=== PATIENT | female | born 1950 | race Asian ===

== ENCOUNTER 2018-06-26 05:59 | Emergency (ER) | payer MEDICARE, OTHER ==
[~2018-06-26] VITALS: Ht 152.4 cm; Wt 63.5 kg
[2018-06-26 06:15] VITALS: BP 139/76
--- NOTE | 2018-06-26 06:15 | NUR ---
ED Nurse Note: Patient was brought in by RA from home due to severe abdominal pain 12/27, N/V/D. Patient is visiting family members from [place]. Per patient she had soup yesterday, and after that severe abdominal pain started. AAO x4, VSS at this time, skin is dry, intact, warm to touch.
[2018-06-26] MEDS ORDERED: Morphine Sulfate 4mg/ml Inj (IV USE ONLY) IVP ONE ×2 (06:30→08:15)
[2018-06-26 06:43] LABS: BASOPHILS % (AUTO) 0.5 % (0.0-2.0); EOSINOPHILS % (AUTO) 1.1 % (0.0-3.0); HEMATOCRIT 41.3 % (37.0-47.0); HEMOGLOBIN 13.8 G/DL (12.0-16.0); LYMPHOCYTES % (AUTO) 10.6 % (20.0-45.0); MEAN CORPUSCULAR VOLUME 92 FL (80-99); MONOCYTES % (AUTO) 3.2 % (1.0-10.0); NEUTROPHILS % (AUTO) 84.7 % (45.0-75.0); PLATELET COUNT 362 K/UL (150-450); RED BLOOD COUNT 4.49 M/UL (4.20-5.40); RED CELL DISTRIBUTION WIDTH 11.4 % (11.6-14.8); WHITE BLOOD COUNT 11.4 K/UL (4.8-10.8)
--- NOTE | 2018-06-26 06:47 | Emergency Room Report ---
History of Present Illness General Chief Complaint: Abdominal Pain Source: Patient (Yaw Gutierres MD) Present Illness HPI This is a 68-year-old female with unknown history. She presents with abdominal pain with nausea and vomiting and diarrhea. Onset for 2 days. Vomiting's nonbloody nonbilious. Diarrhea is watery. No fever or chills. Denies any trauma. Nothing made it better. Nothing made it worse. Pain is 8 out of 10. (Yaw Gutierres MD) Allergies: Coded Allergies: ASPIRIN (Verified Allergy, Unknown, 06/26/18) Patient History Past Medical History: see triage record, old chart reviewed Past Surgical History: other Pertinent Family History: none Social History: Denies: smoking Now: No Immunizations: other Reviewed Nursing Documentation: PMH: Agreed; PSxH: Agreed (Yaw Gutierres MD) Nursing Documentation-PMH Past Medical History: No History, Except For (Yaw Gutierres MD) Review of Systems Eye: Denies: eye pain, blurred vision ENT: Denies: ear pain, nose congestion, throat swelling Respiratory: Denies: cough, shortness of breath Cardiovascular: Denies: chest pain, palpitations Gastrointestinal: Reports: abdominal pain, diarrhea, nausea, vomiting Musculoskeletal: Denies: back pain, joint pain Skin: Denies: rash Neurological: Denies: headache, numbness Endocrine: Denies: increased thirst, increased urine Hematologic/Lymphatic: Denies: easy bruising All Other Systems: negative except mentioned in HPI (Yaw Gutierres MD) Physical Exam Vital Signs Date Time Temp Pulse Resp B/P (MAP) Pulse Ox O2 Delivery O2 Flow Rate FiO2 06/26/18 05:55 98.8 74 12 139/76 99 Room Air vitals normal Sp02 EP Interpretation: reviewed, normal General Appearance: well appearing, no apparent distress, alert Head: normocephalic, atraumatic Eyes: bilateral eye PERRL, bilateral eye EOMI ENT: hearing grossly normal, normal pharynx Neck: full range of motion, supple, no meningismus Respiratory: chest non-tender, lungs clear, normal breath sounds Cardiovascular #1: regular rate, rhythm, no murmur Gastrointestinal: no mass, no organomegaly, no bruit, non-distended, tenderness - Diffuse, decreased bowel sounds Musculoskeletal: back normal, gait/station normal, normal range of motion Psychiatric: mood/affect normal Skin: warm/dry (Yaw Gutierres MD) Medical Decision Making Diagnostic Impression: Primary Impression: Abdominal pain Qualified Codes: R10.84 - Generalized abdominal pain Additional Impression: Cholecystitis ER Course Patient with abdominal pain. Differential include obstruction, infection, perforation to name a few. Labs and CT scan ordered. I will sign this patient out to Dr. Galvin for final dispositon. (Yaw Gutierres MD) ER Course Hospital Course 68 yo F presents to ED c/o abd pain, vomiting and diarrhea Clinical course Patient initially seen and evaluated by Dr Gutierres; please see his note for full history and physical Labs - minimal leukocytosis noted, Hb/Hct stable. electrolytes ok. LFTs elevated. CT A/P - ? developing cholecystitis Discussed findings with patient. I believe patient should be admitted with GI and surgical evaluation. Patient states she has a flight to catch and cannot stay Understands the risks of leaving. Patient has competency to make her own decisions. Signed AMA form. I will still provide prescriptions and GI and surgery referral, but states to patient that I cannot guarantee that she will be okay if she leaves hospital I feel this is a highly complex case requiring extensive working including EKG/ Rhythm strip, Xray/CT/US, Blood/urine lab work, repeat exams while in ED, and administration of strong opiates/narcotics for pain control, admission to hospital or close patient follow up. Diagnosis - cholecystitis, abdominal pain patient left AMA Labs Test 06/26/18 06:10 06/26/18 07:25 White Blood Count 11.4 K/UL (4.8-10.8) Red Blood Count 4.49 M/UL (4.20-5.40) Hemoglobin 13.8 G/DL (12.0-16.0) Hematocrit 41.3 % (37.0-47.0) Mean Corpuscular Volume 92 FL (80-99) Mean Corpuscular Hemoglobin 30.7 PG (27.0-31.0) Mean Corpuscular Hemoglobin Concent 33.4 G/DL (32.0-36.0) Red Cell Distribution Width 11.4 % (11.6-14.8) Platelet Count 362 K/UL (150-450) Mean Platelet Volume 4.9 FL (6.5-10.1) Neutrophils (%) (Auto) 84.7 % (45.0-75.0) Lymphocytes (%) (Auto) 10.6 % (20.0-45.0) Monocytes (%) (Auto) 3.2 % (1.0-10.0) Eosinophils (%) (Auto) 1.1 % (0.0-3.0) Basophils (%) (Auto) 0.5 % (0.0-2.0) Sodium Level 141 MMOL/L (136-145) Potassium Level 3.9 MMOL/L (3.5-5.1) Chloride Level 104 MMOL/L (98-107) Carbon Dioxide Level 26 MMOL/L (21-32) Anion Gap 12 mmol/L (5-15) Blood Urea Nitrogen 9 mg/dL (7-18) Creatinine 0.8 MG/DL (0.55-1.30) Estimat Glomerular Filtration Rate > 60 mL/min (>60) Glucose Level 116 MG/DL (74-106) Calcium Level 9.5 MG/DL (8.5-10.1) Total Bilirubin 0.4 MG/DL (0.2-1.0) Aspartate Amino Transf (AST/SGOT) 16 U/L (15-37) Alanine Aminotransferase (ALT/SGPT) 30 U/L (12-78) Alkaline Phosphatase 189 U/L (46-116) Total Protein 8.5 G/DL (6.4-8.2) Albumin 4.1 G/DL (3.4-5.0) Globulin 4.4 g/dL Albumin/Globulin Ratio 0.9 (1.0-2.7) Lipase 109 U/L (73-393) Urine Color Pale yellow Urine Appearance Clear Urine pH 8 (4.5-8.0) Urine Specific [place] 1.010 (1.005-1.035) Urine Protein Negative (NEGATIVE) Urine Glucose (UA) Negative (NEGATIVE) Urine Ketones Negative (NEGATIVE) Urine Blood Negative (NEGATIVE) Urine Nitrite Negative (NEGATIVE) Urine Bilirubin Negative (NEGATIVE) Urine Urobilinogen Normal MG/DL (0.0-1.0) Urine Leukocyte Esterase Negative (NEGATIVE) (Donell Galvin MD) CT/MRI/US Diagnostic Results CT/MRI/US Diagnostic Results : Imaging Test Ordered: CT A/P Impression Cholelithiasis with mild gallbladder distention and mild soft tissue stranding near the neck of the gallbladder. This may reflect developing acute cholecystitis. Follow-up HIDA scan as indicated (Donell Galvin MD) Last Vital Signs Date Time Temp Pulse Resp B/P (MAP) Pulse Ox O2 Delivery O2 Flow Rate FiO2 06/26/18 05:55 98.8 74 12 139/76 99 Room Air Status: improved (Yaw Gutierres MD) Status: unchanged (Donell Galvin MD) Disposition: AGAINST MEDICAL ADVICE Condition: Serious Scripts Ranitidine Hcl* (ZANTAC*) 150 Mg Tablet 150 MG ORAL TWICE A DAY, #30 TAB Prov: Donell Galvin MD 06/26/18 Ondansetron Odt* (ZOFRAN ODT*) 4 Mg Tab.rapdis 4 MG BC EVERY 6 HOURS PRN for Nausea & Vomiting, #10 TAB 0 Refills Prov: Donell Galvin MD 06/26/18 Ciprofloxacin Hcl* (CIPROFLOXACIN HCL*) 500 Mg Tablet 500 MG ORAL Q12H, #14 TAB 0 Refills Prov: Donell Galvin MD 06/26/18 Hydrocodone Bit/Acetaminophen 5-325* (NORCO 5-325*) 1 Each Tablet 1 TAB ORAL Q6H PRN for For Pain, #10 TAB 0 Refills Prov: Donell Galvin MD 06/26/18 Yaw Gutierres MD Jun 26, 2018 06:47 Donell Galvin MD Jun 26, 2018 09:24
[2018-06-26 07:04] LABS: ANION GAP 12 mmol/L (5-15); BLOOD UREA NITROGEN 9 mg/dL (7-18); CALCIUM 9.5 MG/DL (8.5-10.1); CARBON DIOXIDE 26 MMOL/L (21-32); CHLORIDE 104 MMOL/L (98-107); CREATININE 0.8 MG/DL (0.55-1.30); POTASSIUM 3.9 MMOL/L (3.5-5.1); SODIUM 141 MMOL/L (136-145)
[2018-06-26 07:09] LABS: ALANINE AMINOTRANSFERASE 30 U/L (12-78); ALBUMIN 4.1 G/DL (3.4-5.0); ALBUMIN/GLOBULIN RATIO 0.9 (1.0-2.7); ALKALINE PHOSPHATASE 189 U/L (46-116); ASPARTATE AMINO TRANSFERASE 16 U/L (15-37); BILIRUBIN,TOTAL 0.4 MG/DL (0.2-1.0)
[2018-06-26 07:26] VITALS: BP 129/67
--- NOTE | 2018-06-26 07:26 | NUR ---
ED Nurse Note: REPORT RECEIVED FROM NINA YN. PT LAYING PEACEFULLY IN BED IN NAD. AOX4. VSS.
--- NOTE | 2018-06-26 07:26 | NUR ---
ED Nurse Note: urine sent down
[2018-06-26 07:36] LABS: APPEARANCE,URINE CLEAR; BILIRUBIN, URINE NEGATIVE (NEGATIVE); COLOR,URINE PALE YELLOW; GLUCOSE, URINE (UA) NEGATIVE (NEGATIVE); KETONES,URINE NEGATIVE (NEGATIVE); LEUKOCYTE ESTERASE ,URINE NEGATIVE (NEGATIVE); NITRITE,URINE NEGATIVE (NEGATIVE); PH,URINE 8 (4.5-8.0); PROTEIN,URINE NEGATIVE (NEGATIVE); UROBILINOGEN,URINE NORMAL MG/DL (0.0-1.0)
[2018-06-26] MEDS ORDERED: CIPROFLOXACIN500 M2 ORAL (08:23)
[2018-06-26] MEDS ORDERED: RANITIDINE HCL150 MG ORAL (08:23)
[2018-06-26] MEDS ORDERED: ONDANSETRON ODT4 MG BC (08:23)
[2018-06-26] MEDS ORDERED: NORCO 5-325 TA1 EACH ORAL (08:23)
--- NOTE | 2018-06-26 08:37 | NUR ---
ED Nurse Note: DR Marcus AND RN AT BEDSIDE TO EXPLAIN TO THE PT THAT SHE NEEDS TO BE ADMITTED TO THE HOSPITAL. PT STATES SHE HAS A FLIGHT TO [facility] TODAY AT [address]ED. [address] Marcus AT BEDSIDE EXPLAINING THE RISKS AND CONSEQUENCES INVOLVED IN LEAVING THE HOSPITAL AT THIS TIME WELL THE BENEFITS OF CONTINUED TREATMENT AND HOSPITALIZATION. PT VERBALIZES UNDERSTANDING BUT STILL STATES SHE NEEDS TO CATCH HER FLIGHT TODAY. AMA FORM SIGNED.
--- NOTE | 2018-06-26 09:04 | NUR ---
ED Nurse Note: PT LAYING PEACEFULLY IN BED IN NAD. AOX4. PRESCRIPTIONS AND PAPERWORK EXPLAINED TO PT. PT VERBALIZES UNDERSTANDING AND ALL QUESTIONS ANSWERED. PRESCRIPTIONS AND PAPERWORK GIVEN TO PT, IV AND ID WRISTBAND REMOVED. PT WALKED OUT OF ER WITH STEADY GAIT AND ALL BELONGINGS.
[2018-06-26 09:12] VITALS: BP 127/68
--- NOTE | 2018-06-26 10:46 | Diagnostic Imaging Report ---
Indication: Abdominal pain and cramping for 3 days Technique: Spiral acquisitions obtained through the abdomen and pelvis. No oral contrast utilized, per emergency room physician request No IV contrast utilized, per referring physician request.. Multiplanar reconstructions were generated. Total dose length product 844.78 mGycm. CTDIvol(s) 16.58 mGy. Dose reduction achieved using automated exposure control Comparison: None Findings: The appendix is normal. No evidence of diverticulosis or diverticulitis. Prominent lymph nodes are seen in the pericecal region. There is equivocal mild wall thickening of the terminal ileum and very slight infiltration of the fat adjacent to the ileocecal valve. Numerous prominent but not frankly enlarged nodes are seen in the mesenteric root as well. No small bowel distention. No free or loculated intraperitoneal gas or fluid is evident. Distal esophagus, stomach, duodenum are unremarkable. The gallbladder contains gallstones. It is somewhat distended and there are stones within the gallbladder neck. There is also some pericholecystic inflammation although the wall does not appear to be thickened. No biliary ductal dilatation. Lack of IV contrast limits assessment of the solid organs. The liver demonstrates mild low-attenuation. Some sparing is seen in the usual location adjacent to gallbladder fossa. The pancreas, spleen, adrenals, kidneys are unremarkable. No retroperitoneal mass or adenopathy. The uterus is absent, presumably postsurgically. The bones are unremarkable. The included lung bases demonstrate posterior dependent atelectatic changes. Impression: Cholelithiasis. Some pericholecystic soft tissue stranding raises concern for acute cholecystitis. Consider nuclear medicine hepatobiliary scan if there is high clinical suspicion Equivocal mild wall thickening of the terminal ileum, with adjacent lymphadenopathy and some stranding of the adjacent fat, raises possibility of inflammatory bowel disease. Correlate with clinical findings Fatty liver Incidental findings of prior hysterectomy, posterior dependent pulmonary atelectatic changes This agrees with the preliminary interpretation provided overnight by [facility] teleradiology service. The CT scanner at [facility] is accredited by the [employer] and the scans are performed using protocols designed to limit radiation exposure to as low as reasonably achievable to attain images of sufficient resolution adequate for diagnostic evaluation.
== END 2018-06-26 09:05 | disposition left against medical advice (07) ==
LOC: EDBD 05:59 → EMR 07:10 → CANBEDREQ 09:11
DX: R10.84 Generalized abdominal pain (principal); K81.9 Cholecystitis, unspecified; Z88.6 Allergy status to analgesic agent; R11.2 Nausea with vomiting, unspecified; R19.7 Diarrhea, unspecified; D72.829 Elevated white blood cell count, unspecified
CPT/HCPCS: 36415; 74176; 80053; 81003; 83690; 85025; 96361; 96374; 96375; 96376; 99284; J2270; J2405; S0028